=== PATIENT | male | born 1945 | race Caucasian/White ===

== ENCOUNTER → 2024-04-06 07:18 | Outpatient (REF) | payer MEDICARE, SELFPAY | LOC: HWRCS 07:18 | PROVIDERS: ATTENDING PHYSICIAN Internal Medicine; FAMILY PHYSICIAN Physician Assistant Medical | DX: I34.1 Nonrheumatic mitral (valve) prolapse (principal) | CPT/HCPCS: 93306 ==

== ENCOUNTER → 2024-12-21 15:50 | Outpatient (REF) | payer MEDICARE, SELFPAY | LOC: HWRAD 15:50 | PROVIDERS: ATTENDING PHYSICIAN Nurse Practitioner Family | DX: M47.812 Spondylosis without myelopathy or radiculopathy, cervical region (principal) | CPT/HCPCS: 72050 ==